=== PATIENT | female | born 1975 | race African-American/Black ===

== ENCOUNTER 2019-06-21 18:33 | Emergency (ER) | payer MEDICAID, OTHER ==
[~2019-06-21] VITALS: Ht 172.7 cm; Wt 53.2 kg
[~2019-06-21 18:33] MED LIST: DOCU250C91 PO; HYDR-3965 PO; IBUP-2070 PO
[2019-06-21] MEDS ORDERED: IBUPROFEN 600 MG TABLET PO ONE (19:15)
[2019-06-21] MEDS ORDERED: ACETAMINOPHEN 500 MG TABLET PO ONE (19:15)
[2019-06-21 20:04] VITALS: BP 123/70
[2019-06-21] MEDS ORDERED: HYDROCODONE/ACETAMINOPHEN 5-325 MG TABLET PO ONE (20:15)
== END 2019-06-21 20:29 | disposition home or self-care (01) ==
LOC: EMS 18:33
DX: J06.9 Acute upper respiratory infection, unspecified (principal); R51 Headache; F17.210 Nicotine dependence, cigarettes, uncomplicated; Z98.51 Tubal ligation status
CPT/HCPCS: 99406

== ENCOUNTER 2020-05-16 11:07 | Emergency (ER) | payer MEDICAID ==
[~2020-05-16] VITALS: Ht 172.7 cm; Wt 54.5 kg
[2020-05-16] MEDS ORDERED: LIDOCAINE 5% TRANSDERMAL PATCH TD ONE (12:00)
[2020-05-16] MEDS ORDERED: KETOROLAC TROMETHAMINE 60 MG/2 ML VIAL IM ONE (12:00)
[2020-05-16] MEDS ORDERED: CYCLOBENZAPRINE HCL 10 MG TABLET PO ONE (12:00)
[2020-05-16 13:21] VITALS: BP 103/88
[2020-05-16] MEDS ORDERED: ACETAMINOPHEN 325 MG TABLET PO ONE (13:30)
== END 2020-05-16 13:22 | disposition home or self-care (01) ==
LOC: EMS 11:25
DX: M54.5 Low back pain (principal); F17.210 Nicotine dependence, cigarettes, uncomplicated; Z98.51 Tubal ligation status
CPT/HCPCS: 72100; 96372; 99283; J1885

== ENCOUNTER 2021-02-01 18:09 | Emergency (ER) | payer MEDICAID ==
[~2021-02-01] VITALS: Ht 172.7 cm; Wt 50.0 kg
[2021-02-01 21:00] VITALS: BP 126/74
== END 2021-02-01 21:47 | disposition left against medical advice (07) ==
LOC: EMS 18:16
DX: M54.2 Cervicalgia (principal); F17.210 Nicotine dependence, cigarettes, uncomplicated; F12.90 Cannabis use, unspecified, uncomplicated; Z53.21 Procedure and treatment not carried out due to patient leaving prior to being seen by health care provider
CPT/HCPCS: 99282; Z7502

== ENCOUNTER 2021-02-02 10:52 | Emergency (ER) | payer MEDICAID ==
[~2021-02-02] VITALS: Ht 172.7 cm; Wt 50.0 kg
[2021-02-02 11:45] VITALS: BP 114/65
[2021-02-02] MEDS ORDERED: CYCLOBENZAPRINE HCL 10 MG TABLET PO ONE (11:45)
[2021-02-02] MEDS ORDERED: LIDOCAINE 5% TRANSDERMAL PATCH TD ONE (11:45)
[2021-02-02] MEDS ORDERED: KETOROLAC TROMETHAMINE 60 MG/2 ML VIAL IM ONE (11:45)
== END 2021-02-02 11:50 | disposition home or self-care (01) ==
LOC: EMS 10:52
DX: M62.838 Other muscle spasm (principal); M54.2 Cervicalgia; M25.511 Pain in right shoulder; F17.210 Nicotine dependence, cigarettes, uncomplicated; F12.90 Cannabis use, unspecified, uncomplicated
CPT/HCPCS: 96372; 99283; J1885

== ENCOUNTER 2022-11-28 09:27 | Emergency (ER) | payer MEDICAID ==
[~2022-11-28] VITALS: Ht 172.7 cm; Wt 52.3 kg
[2022-11-28 10:17] LABS: BASOPHILS % (AUTO) 0.9 % (0.0-2.0); EOSINOPHILS % (AUTO) 1.6 % (1.0-6.0); HEMATOCRIT 27.8 % (36-46); HEMOGLOBIN 8.3 g/dL (12.0-16.0); LYMPHOCYTES # (AUTO) 1.1 K/uL (1.0-4.8); MEAN CORPUSCULAR HEMOGLOBIN 19.6 pg (26.0-34.0); MEAN CORPUSCULAR HGB CONC 29.9 G/dL (31.0-37.0); MEAN CORPUSCULAR VOLUME 65 fL (80-100); MONOCYTES # (AUTO) 0.5 K/uL (0.1-1.0); NEUTROPHILS # (AUTO) 1.9 K/uL (1.8-7.7); NEUTROPHILS % (AUTO) 54.5 % (40.0-70.0); PLATELET COUNT (AUTO) 250 K/uL (150-450); RED BLOOD CELL COUNT(AUTO) 4.25 MIL/uL (4.00-5.20); RED CELL DISTRIBUTION WIDTH 19.9 % (11.5-14.5)
[2022-11-28 10:26] LABS: ANION GAP 6 mmol/L (8-16); CALCIUM, TOTAL 8.7 mg/dL (8.8-10.5); CARBON DIOXIDE 28 mmol/L (22-29); CHLORIDE 105 mmol/L (98-107); CREATININE 0.61 mg/dL (0.60-1.30); GLOMERULAR FILTR. RATE CALC > 60 mL/min (>60); GLUCOSE,RANDOM 84 mg/dL (70-110); POTASSIUM 3.6 mmol/L (3.5-5.1); SODIUM SERUM 139 mmol/L (136-145); UREA NITROGEN, BLOOD 9 mg/dL (7-18)
[2022-11-28 10:32] LABS: ALANINE AMINOTRANSFERASE 16 U/L (12-78); ALBUMIN 4.1 g/dL (3.4-5.0); ALKALINE PHOSPHATASE 58 U/L (46-116); ASPARTATE AMINOTRANSFERASE 20 U/L (15-37); BILIRUBIN,TOTAL 0.6 mg/dL (0.1-1.0); LIPASE 59 U/L (73-393); TOTAL PROTEIN, SERUM 8.2 g/dL (6.4-8.2)
[2022-11-28 10:46] LABS: APPEARANCE,URINE CLEAR (CLEAR); BILIRUBIN,URINE NEGATIVE (NEGATIVE); GLUCOSE, URINE (UA) NEGATIVE (NEGATIVE); LEUKOCYTE ESTERASE ,URINE NEGATIVE (NEGATIVE); NITRATE,URINE NEGATIVE (NEGATIVE); OCCULT BLOOD,URINE NEGATIVE (NEGATIVE); PROTEIN,URINE NEGATIVE (NEGATIVE); SPECIFIC GRAVITIY, URINE 1.009 (1.003-1.030); UROBILINOGEN,URINE <=1.0 mg/dL (<=1.0)
[2022-11-28 10:54] LABS: BACTERIA,URINE None Seen /HPF (None Seen); RBC,URINE None Seen /HPF (0-2); SQUAMOUS EPITHELIAL CELL,UR Few /LPF (None Seen); WBC,URINE None Seen /HPF (0-5)
[2022-11-28] MEDS ORDERED: BARIUM SULFATE 0.1% SUSPENSION 450 ML BOTTLE PO ONE (11:30)
[2022-11-28] MEDS ORDERED: ONDANSETRON HCL 4 MG/2 ML VIAL IVP ONE (11:30)
[2022-11-28] MEDS ORDERED: HYDROmorphone HCL 2 MG/ML SYRINGE IVP ONE (11:30)
[2022-11-28] MEDS ORDERED: SODIUM CHLORIDE 0.9% 1,000 ML IV ONE ×2 (11:30)
[2022-11-28 13:00] VITALS: BP 115/62
[2022-11-28] MEDS ORDERED: HYDROCODONE/ACETAMINOPHEN 5-325 MG TABLET PO ONE (13:45)
[2022-11-28] MEDS ORDERED: MAG30ORA11 PO (14:25)
[2022-11-28] MEDS ORDERED: HYDR-4723 PO (14:25)
[2022-11-28] MEDS ORDERED: ONDA-104 PO (14:25)
== END 2022-11-28 16:10 | disposition home or self-care (01) ==
LOC: EMS 09:32
DX: R10.10 Upper abdominal pain, unspecified (principal); D64.9 Anemia, unspecified; G89.29 Other chronic pain; M54.9 Dorsalgia, unspecified; F17.210 Nicotine dependence, cigarettes, uncomplicated; F12.90 Cannabis use, unspecified, uncomplicated; Z98.890 Other specified postprocedural states; Z98.51 Tubal ligation status
CPT/HCPCS: 99285; 74176; 96374; 96361; 96375; 80053; 81001; 83690; 84703; 85025; 36415; J1170; J2405; Q9967; J7030

== ENCOUNTER 2023-05-25 22:41 | Emergency (ER) | payer MEDICAID ==
[~2023-05-25] VITALS: Ht 172.7 cm; Wt 54.5 kg
[~2023-05-25 22:41] MED LIST changes: -DOCU250C91 PO; -HYDR-3965 PO; +HYDR-4723 PO; -IBUP-2070 PO; +MAG30ORA11 PO; +ONDA-104 PO
[2023-05-26 01:16] VITALS: BP 90/50; PULSE 85; RESP 13; TEMP 98.6
== END 2023-05-26 03:10 | disposition left against medical advice (07) ==
LOC: EMS 22:41
DX: R42 Dizziness and giddiness (principal); Z53.21 Procedure and treatment not carried out due to patient leaving prior to being seen by health care provider
CPT/HCPCS: 93005; 99281; Z7502

== ENCOUNTER 2023-06-23 23:44 | Emergency (ER) | payer MEDICAID ==
[~2023-06-23] VITALS: Ht 172.7 cm; Wt 54.0 kg
[2023-06-24] VITALS (14 sets, daily range): BP systolic 98–132; BP diastolic 60–77; PULSE 49–69; RESP 16–18; TEMP 97.6–98.4
[2023-06-24 01:28] LABS: EOSINOPHILS % (AUTO) 3.8 % (1.0-6.0); HEMATOCRIT 22.3 % (36-46); LYMPHOCYTES # (AUTO) 1.6 K/uL (1.0-4.8); LYMPHOCYTES % (AUTO) 33.3 % (22.0-44.0); MEAN CORPUSCULAR HGB CONC 28.2 G/dL (31.0-37.0); MEAN CORPUSCULAR VOLUME 64 fL (80-100); MONOCYTES # (AUTO) 0.3 K/uL (0.1-1.0); NEUTROPHILS # (AUTO) 2.6 K/uL (1.8-7.7); NEUTROPHILS % (AUTO) 55.9 % (40.0-70.0); PLATELET COUNT (AUTO) 229 K/uL (150-450); RED BLOOD CELL COUNT(AUTO) 3.49 MIL/uL (4.00-5.20); WHITE BLOOD COUNT (AUTO) 4.7 K/uL (4.5-11.0)
[2023-06-24 01:40] LABS: ANION GAP 10 mmol/L (8-16); CALCIUM, TOTAL 8.6 mg/dL (8.8-10.5); CARBON DIOXIDE 26 mmol/L (22-29); CHLORIDE 104 mmol/L (98-107); GLOMERULAR FILTR. RATE CALC > 60 mL/min (>60); GLUCOSE,RANDOM 105 mg/dL (70-110); POTASSIUM 3.6 mmol/L (3.5-5.1); SODIUM SERUM 140 mmol/L (136-145); UREA NITROGEN, BLOOD 7 mg/dL (7-18)
[2023-06-24 01:42] LABS: INR 1.1 (0.9-1.1); PROTHROMBIN TIME 11.2 SEC (9.4-11.6)
[2023-06-24 01:46] LABS: ALANINE AMINOTRANSFERASE 12 U/L (12-78); ALBUMIN 3.4 g/dL (3.4-5.0); ALKALINE PHOSPHATASE 55 U/L (46-116); ASPARTATE AMINOTRANSFERASE 17 U/L (15-37); BILIRUBIN,TOTAL 0.3 mg/dL (0.1-1.0); TOTAL PROTEIN, SERUM 6.6 g/dL (6.4-8.2)
[2023-06-24 01:54] LABS: HEMOGLOBIN 6.3 g/dL (12.0-16.0)
[2023-06-24 02:54] LABS: RBC MORPHOLOGY COMMENT ABNORMAL RBC MORPH
[2023-06-24 02:55] LABS: PATHOLOGY REVIEW, DIFF YES
[2023-06-24] MEDS ORDERED: HYDROCODONE/ACETAMINOPHEN 5-325 MG TABLET PO ONE (04:00)
[2023-06-24 07:40] LABS: APPEARANCE,URINE CLEAR (CLEAR); BILIRUBIN,URINE NEGATIVE (NEGATIVE); COLOR,URINE COLORLESS (YELLOW); GLUCOSE, URINE (UA) NEGATIVE (NEGATIVE); KETONES,URINE NEGATIVE (NEGATIVE); LEUKOCYTE ESTERASE ,URINE SMALL (NEGATIVE); NITRATE,URINE NEGATIVE (NEGATIVE); OCCULT BLOOD,URINE LARGE (NEGATIVE); PROTEIN,URINE NEGATIVE (NEGATIVE); SPECIFIC GRAVITIY, URINE 1.008 (1.003-1.030); UROBILINOGEN,URINE <=1.0 mg/dL (<=1.0)
[2023-06-24 07:48] LABS: BACTERIA,URINE None Seen /HPF (None Seen); RBC,URINE None Seen /HPF (0-2); SQUAMOUS EPITHELIAL CELL,UR Few /LPF (None Seen); WBC,URINE 0-2 /HPF (0-5)
[2023-06-24] MEDS ORDERED: IBUP-1492 PO (10:41)
== END 2023-06-24 11:13 | disposition home or self-care (01) ==
LOC: EMS 23:46
DX: D64.9 Anemia, unspecified (principal); G89.29 Other chronic pain; M54.9 Dorsalgia, unspecified; F17.210 Nicotine dependence, cigarettes, uncomplicated; Z98.890 Other specified postprocedural states
CPT/HCPCS: 99291; 80053; 81001; 84703; 85025; 85610; 85730; 86850; 86900; 86901; 86923; 36415; 36430; 93005; P9016

== ENCOUNTER 2024-06-30 10:28 | Emergency (ER) | payer MEDICAID ==
[~2024-06-30] VITALS: Ht 172.7 cm; Wt 49.5 kg
[2024-06-30] VITALS (8 sets, daily range): BP systolic 98–118; BP diastolic 68–73; PULSE 58–86; RESP 16–20; TEMP 98–98.4; O2SAT 99
[~2024-06-30 10:28] MED LIST changes: +HYDR-4062 PO; -HYDR-4723 PO; +IBUP-1492 PO
[2024-06-30 11:04] LABS: BASOPHILS % (AUTO) 1.1 % (0.0-2.0); HEMATOCRIT 25.4 % (36-46); HEMOGLOBIN 7.3 g/dL (12.0-16.0); LYMPHOCYTES % (AUTO) 23.6 % (22.0-44.0); MEAN CORPUSCULAR HEMOGLOBIN 17.6 pg (26.0-34.0); MEAN CORPUSCULAR HGB CONC 28.7 G/dL (31.0-37.0); MEAN CORPUSCULAR VOLUME 61 fL (80-100); MONOCYTES # (AUTO) 0.3 K/uL (0.1-1.0); MONOCYTES % (AUTO) 7.3 % (2.0-9.0); NEUTROPHILS # (AUTO) 2.9 K/uL (1.8-7.7); PLATELET COUNT (AUTO) 394 K/uL (150-450); RED BLOOD CELL COUNT(AUTO) 4.14 MIL/uL (4.00-5.20); RED CELL DISTRIBUTION WIDTH 20.7 % (11.5-14.5); WHITE BLOOD COUNT (AUTO) 4.5 K/uL (4.5-11.0)
[2024-06-30 11:13] LABS: ANION GAP 16 mmol/L (8-16); CALCIUM, TOTAL 9.2 mg/dL (8.8-10.5); CARBON DIOXIDE 22 mmol/L (22-29); CHLORIDE 103 mmol/L (98-107); CREATININE 0.59 mg/dL (0.60-1.30); GLOMERULAR FILTR. RATE CALC > 60 mL/min (>60); GLUCOSE,RANDOM 106 mg/dL (70-110); POTASSIUM 3.6 mmol/L (3.5-5.1); SODIUM SERUM 141 mmol/L (136-145); UREA NITROGEN, BLOOD 7 mg/dL (7-18)
[2024-06-30 11:34] LABS: ALANINE AMINOTRANSFERASE 14 U/L (12-78); ALBUMIN 3.9 g/dL (3.4-5.0); ALKALINE PHOSPHATASE 60 U/L (46-116); ASPARTATE AMINOTRANSFERASE 18 U/L (15-37); BILIRUBIN,TOTAL 0.8 mg/dL (0.1-1.0); HCG,QUANTITATIVE 5 mIU/mL (0-6); TOTAL PROTEIN, SERUM 7.9 g/dL (6.4-8.2)
[2024-06-30] MEDS: ACETAMINOPHEN 500 MG TABLET PO ONE (12:18)
[2024-06-30] MEDS: DiphenhydrAMINE HCL 50 MG/ML VIAL IVP ONE (13:35)
== END 2024-06-30 16:44 | disposition home or self-care (01) ==
LOC: EMS 10:28
DX: D64.9 Anemia, unspecified (principal); R53.1 Weakness; R42 Dizziness and giddiness; F17.210 Nicotine dependence, cigarettes, uncomplicated
CPT/HCPCS: 99285; 36430; 96374; 80053; 84702; 85025; 86850; 86900; 86901; 86923; 36415; 93005; P9016; J1200

== ENCOUNTER 2025-06-04 12:03 | Emergency (ER) | payer MEDICAID ==
[~2025-06-04] VITALS: Ht 172.7 cm; Wt 51.0 kg
[~2025-06-04 12:03] MED LIST changes: -HYDR-4062 PO; -IBUP-1492 PO; -MAG30ORA11 PO; -ONDA-104 PO; +[UNRECOGNIZED DRUG - CODE] PO
[2025-06-04 12:11] VITALS: TEMP 98.2
[2025-06-04 12:32] LABS: APPEARANCE,URINE CLEAR (CLEAR); GLUCOSE, URINE (UA) NEGATIVE (NEGATIVE); LEUKOCYTE ESTERASE ,URINE NEGATIVE (NEGATIVE); NITRATE,URINE NEGATIVE (NEGATIVE); OCCULT BLOOD,URINE NEGATIVE (NEGATIVE); SPECIFIC GRAVITIY, URINE 1.010 (1.003-1.030)
[2025-06-04 12:35] LABS: HCG,QUAL URINE NEGATIVE (NEGATIVE)
[2025-06-04 13:04] LABS: PLATELET COUNT (AUTO) 292 K/uL (150-450); RED BLOOD CELL COUNT(AUTO) 4.13 MIL/uL (4.00-5.20); RED CELL DISTRIBUTION WIDTH 21.0 % (11.5-14.5); WHITE BLOOD COUNT (AUTO) 3.8 K/uL (4.5-11.0)
[2025-06-04 13:06] LABS: BAND NEUTROPHILS % (MANUAL) 0 % (0-5)
[2025-06-04] MEDS: SODIUM CHLORIDE 0.9% 1,000 ML IV ONE (13:06)
[2025-06-04] MEDS: FAMOTIDINE 20 MG/2 ML VIAL IVP ONE (13:08)
[2025-06-04] MEDS: KETOROLAC TROMETHAMINE 30 MG/ML VIAL IVP ONE (13:08)
[2025-06-04] MEDS: ONDANSETRON HCL 4 MG/2 ML VIAL IVP ONE (13:08)
[2025-06-04 13:11] LABS: CALCIUM, TOTAL 9.3 mg/dL (8.8-10.5); CREATININE 0.55 mg/dL (0.60-1.30); GLOMERULAR FILTR. RATE CALC > 60 mL/min (>60); GLUCOSE,RANDOM 74 mg/dL (70-110); SODIUM SERUM 141 mmol/L (136-145); UREA NITROGEN, BLOOD 4 mg/dL (7-18)
[2025-06-04] MEDS ORDERED: IOHEXOL 350 MG/ML 100 ML VIAL ONE (13:12)
[2025-06-04] MEDS ORDERED: SODIUM CHLORIDE 0.9% 100 ML ONE (13:12)
[2025-06-04 13:25] LABS: ASPARTATE AMINOTRANSFERASE 19.0 U/L (15-37); TOTAL PROTEIN, SERUM 7.6 g/dL (6.4-8.2)
[2025-06-04 13:31] LABS: EOSINOPHILS % (MANUAL) 2 % (1-6); LYMPHOCYTES % (MANUAL) 26 % (22-44); MONOCYTES % (MANUAL) 6 % (2-9); RBC MORPHOLOGY COMMENT ABNORMAL RBC MORPH; SEGMENTED NEUTROPHILS % 66 % (40-70)
[2025-06-04] MEDS: MORPHINE SULFATE 2 MG/ML SYRINGE IVP ONE (14:12)
[2025-06-04] MEDS ORDERED: ACET-3385 PO (14:13)
[2025-06-04] MEDS ORDERED: DOCU-385 PO (14:13)
[2025-06-04] MEDS: DOCUSATE SODIUM 100 MG CAPSULE PO ONE (14:16)
[2025-06-04 14:34] VITALS: BP 112/62; PULSE 63; RESP 18; O2SAT 100
== END 2025-06-04 14:35 | disposition home or self-care (01) ==
LOC: EMS 12:15
DX: K59.00 Constipation, unspecified (principal); R10.11 Right upper quadrant pain; F12.90 Cannabis use, unspecified, uncomplicated; F17.210 Nicotine dependence, cigarettes, uncomplicated; Z98.890 Other specified postprocedural states; Z98.51 Tubal ligation status; Z79.899 Other long term (current) drug therapy
CPT/HCPCS: 99285; 74177; 96374; 96375; 96361; 80048; 80076; 81003; 83690; 84703; 85025; 36415; J1885; Q9967; J3490; J2270; J2405; J7030; J7050